=== PATIENT | female | born 1940 | race Asian ===

== ENCOUNTER 2016-08-25 15:03 | Emergency (ER) | payer MEDICARE, OTHER ==
[~2016-08-25] VITALS: Wt 68.0 kg
[~2016-08-25 15:03] MED LIST: ACET650T85; CODE118S; FELO10TA34; LORA-407; SIMV20TA
[2016-08-25] MEDS ORDERED: ACETAMINOPHEN 325 MG TAB PO ONE (16:00)
[2016-08-25] MEDS ORDERED: AZITHROMYCIN 250 MG TAB PO ONE (16:00)
--- NOTE | 2016-08-25 16:36 | RADRPT ---
PROCEDURE: XR Chest. CLINICAL INDICATION: 76-year-old female with cough. TECHNIQUE: Single frontal view of the chest was obtained COMPARISON: Chest x-ray 04/29/2013 10:43 a.m. FINDINGS: The soft tissues are normal. There are degenerative osteophytes in the thoracic spine. The the hea rt is normal in size. The cardiomediastinal silhouette, pulmonary vasculature and hilar structures are normal. There are vascular calcifications in the aortic arch. There is a plate-like density cons istent with scarring lateral to the right heart border unchanged compared to April 29, 2013. No acute infiltrate is identified. The costophrenic angles are normal. IMPRESSION: 1. No acute infiltrate is identified. 2. Atherosclerosis of the aortic arch. 3. Plate-like scarring lateral to the right heart border. RPTAT:AAJJ Physician Sabina Date Time Electronically viewed and signed by Eusebio Cardenas Physician on 08/25/2016 16:35 ANTONINO/
[2016-08-25] MEDS ORDERED: ACET325T33 PO (16:48)
[2016-08-25] MEDS ORDERED: AZIT250T94 PO (16:48)
[2016-08-25 16:56] VITALS: BP 136/63; PULSE 62; RESP 16; TEMP 98.9
--- NOTE | 2016-08-25 19:26 | ERD ---
ER Documentation Chief Complaint Date/Time DATE: 08/25/16 TIME: 19:24 Chief Complaint cough and congestion with mild fevers for the past 4 days.no pain HPI Patient is a 76-year-old female with no medical problems who presents with 4 days of cough and phlegm. The patient had fever in triage. The patient said that she took a "cough medicine". She is speaking in full sentences at this time. Upon review of old medical records this the patient's first visit to the emergency department. Her primary doctor is Dr. Alexander Aaron. ROS All systems reviewed and are negative except as per history of present illness. Medications Home Meds Active Scripts Acetaminophen* (Tylenol*) 325 Mg Tablet, 2 TAB PO Q8 Y for PAIN AND OR ELEVATED TEMP, #20 TAB Prov:JADE HATCH MD 08/25/16 Azithromycin* (Zithromax*) 250 Mg Tablet, 250 MG PO DAILY for 4 Days, TAB Prov:JADE HATCH MD 08/25/16 Reported Medications Loratadine (Claritin) 10 Mg Tablet 07/13/10 Felodipine* (Plendil*) 10 Mg Tab.sr.24h 07/13/10 Simvastatin* (Zocor*) 20 Mg Tablet 07/13/10 Promethazine w/Codeine* (Phenergan w/Codeine* Syrup) 473 Ml Syrup 07/13/10 Acetaminophen (Tylenol 8 Hour) 650 Mg Tablet.sa 07/13/10 Allergies Allergies: Coded Allergies: No Known Drug Allergies (Verified Allergy, Mild, 07/13/10) PMhx/Soc History of Surgery: Yes (CHOLECYTECTOMY 1993) Anesthesia Reaction: No Hx Neurological Disorder: No Hx Respiratory Disorders: No Hx Psychiatric Problems: No Hx Alcohol Use: No Hx Substance Use: No Hx Tobacco Use: No FmHx Family History: No diabetes Physical Exam Vitals Vital Signs Date Time Temp Pulse Resp B/P Pulse Ox O2 Delivery O2 Flow Rate FiO2 08/25/16 16:56 98.9 62 16 136/63 99 Room Air 08/25/16 15:13 100.0 89 22 142/81 97 Physical Exam Const: No acute distress Head: Atraumatic Eyes: Normal Conjunctiva ENT: Normal External Ears, Nose and Mouth. Neck: Full range of motion..~ No meningismus. Resp: Clear to auscultation bilaterally Cardio: Regular rate and rhythm, no murmurs Abd: Soft, non tender, non distended. Normal bowel sounds Skin: No petechiae or rashes Back: No midline or flank tenderness Ext: No cyanosis, or edema Neur: Awake and alert Psych: Normal Mood and Affect Results 24 hrs Current Medications Medications (Trade) Dose Ordered Sig/Antonio Route PRN Reason Start Time Stop Time Status Last Admin Dose Admin Acetaminophen (Tylenol Tab) 650 mg ONCE ONCE PO 08/25/16 16:00 08/25/16 16:01 DC 08/25/16 15:55 Azithromycin (Zithromax) 500 mg ONCE ONCE PO 08/25/16 16:00 08/25/16 16:01 DC 08/25/16 15:55 Procedures/[facility] Chest x-ray negative for pneumonia. Influenza swab was negative. Patient is a 76-year-old female with no medical problems who presents with cough and phlegm. X-ray shows no sign of pneumonia. Flu swab is negative. I will treat her for an acute bronchitis and she is otherwise well-appearing and speaking in full sentences at this time. Her oxygen level was normal. The patient be discharged with prescription for Zithromax. She was given the first dose in the emergency department. She can return sooner for any worsening symptoms. She should follow-up with Dr. Alexander Aaron within 24-48 hours for reevaluation. Departure Diagnosis: Primary Impression: Bronchitis Condition: Fair Patient Instructions: Bronchitis, Antiobiotic Treatment (Adult) Additional Instructions: Call your primary care doctor TOMORROW for an appointment during the next 1-2 days.See the doctor sooner or return here if your condition worsens before your appointment time. JADE HATCH MD Aug 25, 2016 19:26
== END 2016-08-25 16:57 | disposition home or self-care (01) ==
LOC: FTE 15:03
DX: J20.9 Acute bronchitis, unspecified (principal); I10 Essential (primary) hypertension
CPT/HCPCS: 71010; 87400

== ENCOUNTER 2017-08-15 17:21 | Inpatient (IN) | END 2017-08-16 15:30 | disposition home or self-care (01) | DRG 153 ==